=== PATIENT | female | born 1985 ===

== ENCOUNTER 2022-07-14 14:43 | Emergency (ER) | payer OTHER ==
[2022-07-14 15:57] LABS: CARBON DIOXIDE,CO2 22.5 mmol/L (21.0-32.0); POTASSIUM,K 3.8 mmol/L (3.5-5.1)
== END 2022-07-14 16:24 | disposition home or self-care (01) ==
LOC: MW.ED 14:43
DX: S40.012A Contusion of left shoulder, initial encounter (principal); S60.042A Contusion of left ring finger without damage to nail, initial encounter; H92.02 Otalgia, left ear; M54.2 Cervicalgia; R51.9 Headache, unspecified; V49.9XXA Car occupant (driver) (passenger) injured in unspecified traffic accident, initial encounter
CPT/HCPCS: 36415; 71045; 71045-26; 72125; 72125-26; 73030-26-LT; 73030-LT; 73060-26-LT; 73060-LT; 73130-26-LT; 73130-LT; 80053; 84703; 85025; 99285

== ENCOUNTER 2022-07-18 16:35 | Emergency (ER) | payer OTHER | END 2022-07-18 20:08 | disposition home or self-care (01) | LOC: MW.ED 16:35 | DX: S16.1XXA Strain of muscle, fascia and tendon at neck level, initial encounter (principal); V89.2XXA Person injured in unspecified motor-vehicle accident, traffic, initial encounter; Y92.410 Unspecified street and highway as the place of occurrence of the external cause | CPT/HCPCS: 99283 ==